=== PATIENT | female | born 1995 | race Caucasian/White ===

== ENCOUNTER 2017-04-25 21:50 | Emergency (ER) | payer OTHER ==
[~2017-04-25] VITALS: Ht 170.2 cm; Wt 104.9 kg
[2017-04-25 21:56] VITALS: TEMP 36.7; Ht 170.2 cm; Wt 104.9 kg
[2017-04-25] MEDS ORDERED: SEPTRA DS HOME PACK 1 EA VIAL PO ONE (22:45)
[2017-04-25] MEDS ORDERED: PHENAZOPYRIDINE HOME PACK 200 MG VIAL PO ONE (22:45)
[2017-04-25] MEDS ORDERED: PHEN-876 PO (22:49)
[2017-04-25] MEDS ORDERED: SULF800T23 PO (22:49)
[2017-04-25] MEDS ORDERED: LEVOIUD (22:54)
[2017-04-25 23:26] VITALS: BP 119/67; PULSE 70; O2SAT 99
--- NOTE | 2017-04-26 03:11 | EMERGENCY ROOM VISIT NOTE ---
History First contact with patient: 22:29 Chief Complaint: URINARY SYMPTOMS Stated Complaint: PRESSURE/PAIN IN ABD,NEEDING TO PEE,UTI Nursing Triage Summary: C/o pressure in bladder and while urinating, pt states she feels as though she has a UTI. History of Present Illness The patient is a 21 year old female who presents to the Emergency Room with complaints of urinary frequency, urgency and dysuria for the past day. Patient states she's had bladder infections before symptoms. Family denies back pain, fever, chills, vomiting, diarrhea, vaginal itching or discharge. No recent antibiotics. No other concerns per patient. Review of Systems See HPI for pertinent positives & negatives. A total of 10 systems reviewed and were otherwise negative. Past Medical/Surgical History Knee surgery Social History Smoking Status: Never Smoker Smokeless Tobacco Use: No Alcohol Use: none Drug Use: none Current/Historical Medications Scheduled Levonorgestrel (Iud) (Mirena), 1 DOSE CONTINOUS Phenazopyridine HCl (Pyridium), 200 MG PO TID Sulfa/Trimethoprim (Bactrim Ds 800MG/160MG), 1 TAB PO BID Allergies Coded Allergies: Amoxicillin (Verified Allergy, Intermediate, RASH, 04/25/17) Physical Exam Vital Signs Date Time Temp Pulse Resp B/P (MAP) Pulse Ox O2 Delivery O2 Flow Rate FiO2 04/25/17 23:26 70 14 119/67 99 04/25/17 21:56 36.7 97 18 140/100 97 Room Air Pain Rating (0-10): 3.0 Physical Exam VITALS: Vitals are noted on the nurse's note and reviewed by myself. Vital signs stable. GENERAL: Pleasant female, in no acute distress, nondiaphoretic, well-developed well-nourished. SKIN: Capillary reflex less than 2 seconds. HEENT: Normocephalic. PERRLA. EOMI. Nares patent. Mucous membranes moist. Neck is supple without nuchal rigidity. HEART: Regular rate and rhythm without murmurs gallops or rubs. LUNGS: Clear to auscultation bilaterally without wheezes, rales or rhonchi. No retractions or accessory muscle use. ABDOMEN: Positive bowel sounds x 4. Normal tympanic percussion. Soft, nontender, without masses or organomegaly. Desai sign negative. No guarding or rebound tenderness. No CVA tenderness MUSCULOSKELETAL: No gross musculoskeletal defects. NEURO: Patient was alert and oriented to person place and time. Normal sensation to light and sharp touch. No focal neurological deficits. Medical Decision & Procedures ED Course Prior records reviewed and summarized as above. Triage Nursing notes reviewed. Additional history obtained from family. The patient's history was concerning for urinary symptoms. Differential diagnosis: Etiologies such as UTI, cystitis, vaginitis, renal colic, as well as others were entertained.. Physical examination: The physical examination was consistent with UTI ER treatment provided: Pyridium, Bactrim On reassessment the patient felt better. Diagnostics interpreted by me: The labs revealed urine dip consistent with infection and sent for culture. Negative hCG This appears to be UTI. Patient had no CVA tenderness on exam. She is afebrile and nontoxic. She was well-appearing. She is advised to take medications as directed and to follow-up family care in a few days or here in the ER sooner for fevers, back pain, vomiting, worsening signs or symptoms or as needed. She did not have acute abdomen on exam. She is well-appearing. By the evaluation outlined above emergent etiologies such as pyelonephritis, vaginitis, as well as others were deemed relatively unlikely. The pt informed about the findings as listed above. All questions were answered and pleased with the treatment. Return instructions were outlined and the patient was discharged in stable condition. Outpatient prescription management: Bactrim, Pyridium Referral: The patient was referred back to primary care physician for follow-up in 2 to 3 days for a recheck of the current condition. Medical Decision As above Impression Primary Impression: Urinary tract infection Departure Information Dispostion Home / Self-Care Condition GOOD Prescriptions Phenazopyridine HCl (Pyridium) 200 Mg Tab 200 MG PO TID for 2 Days, #6 TAB Prov: Debbie Munoz PA-C 04/25/17 Sulfa/Trimethoprim (Bactrim Ds 800MG/160MG) Tab 1 TAB PO BID, #4 TAB Prov: Debbie Munoz PA-C 04/25/17 Referrals No Doctor, Assigned (PCP) Forms HOME CARE DOCUMENTATION FORM, IMPORTANT VISIT INFORMATION Patient Instructions UTI, My [facility] Additional Instructions Trimethoprim-Sulfamethoxazole(Bactrim DS): Take one pill twice daily for 3 days for your urine infection. All antibiotics can cause diarrhea. If this occurs and you feel worse or it does not resolve in 1-2 days follow up with your doctor or return to the Emergency Department as this could be signs of serious underlying problems. Any medication can cause an allergic reaction, stop the pills immediately and return to the ER for rash, hives, breathing difficulties, or swelling. Pyridium 200mg: Take one pill three times daily as needed for urinary discomfort. This medication will turn your urine orange. This is normal and nothing to be concerned about. Ibuprofen(Motrin, Advil) may be used for fever or pain. Use 600mg every six hours as needed. Take with food. Avoid using more than 2400mg in a 24 hour period. Do not use 2400mg per day for more than three consecutive days without physician direction. Prolonged inappropriate use can lead to stomach upset or ulcers. (AND/OR) Acetaminophen(Tylenol) may be used for fever or pain. Use 1000mg every six hours as needed. Avoid using more than 3000mg in a 24 hour period. Rest and drink plenty of fluids as tolerated. Slow sips of water or sports drinks are recommended instead of large amounts all at once. Continue current medications. Once your stomach is settled start with a clear liquid diet (jello, soup broth, etc.) and then advance as tolerated. You should avoid full, heavy meals for about 24 hrs from the time your symptoms resolved. Return to the ER immediately for worsening or persistent abdominal/back pain, vomiting, fevers, worsening of your condition, or as needed. Follow up with your primary physician within 2-3 days for a recheck of the current condition. Problem Qualifiers Primary Impression: Urinary tract infection Urinary tract infection type: acute cystitis Hematuria presence: with hematuria Qualified Codes: N30.01 - Acute cystitis with hematuria
== END 2017-04-25 23:05 | disposition home or self-care (01) ==
LOC: C.EDB 21:52 → C.EDC 23:05
DX: N30.01 Acute cystitis with hematuria (principal); Z98.890 Other specified postprocedural states